=== PATIENT | male | born 1945 | race Hispanic/Latino ===

== ENCOUNTER 2017-04-09 10:53 | Day surgery (SDC) | payer MEDICARE ==
[2017-04-09 11:19] VITALS: BMI 26.6
[2017-04-09] MEDS ORDERED: Lactated Ringer's 1,000 ML IV ONE (13:22)
[2017-04-09] MEDS ORDERED: Propofol 10 mg/ml Inj (20 ML) ONE ×2 (13:27→13:40)
[2017-04-09] MEDS ORDERED: Lactated Ringer's 500 ML IV SCH (13:45)
[2017-04-09 14:22] VITALS: TEMP 98; O2SAT 100
[2017-04-09 14:51] VITALS: BP 132/63; PULSE 48; RESP 13
== END 2017-04-09 15:30 | disposition home or self-care (01) ==
LOC: C.ENDO 10:53
PROVIDERS: ATTEND Internal Medicine Gastroenterology
DX: D12.0 Benign neoplasm of cecum (principal); D12.2 Benign neoplasm of ascending colon; D12.3 Benign neoplasm of transverse colon; D12.4 Benign neoplasm of descending colon; D12.8 Benign neoplasm of rectum; R19.4 Change in bowel habit; K57.30 Diverticulosis of large intestine without perforation or abscess without bleeding; I48.91 Unspecified atrial fibrillation; J44.9 Chronic obstructive pulmonary disease, unspecified; I25.10 Atherosclerotic heart disease of native coronary artery without angina pectoris; E78.5 Hyperlipidemia, unspecified; I10 Essential (primary) hypertension; K21.9 Gastro-esophageal reflux disease without esophagitis; I73.9 Peripheral vascular disease, unspecified; F41.9 Anxiety disorder, unspecified
CPT/HCPCS: 45380; 45381; 45385; 88305; J2704; J7120